=== PATIENT | female | born 1970 | race Caucasian/White ===

== ENCOUNTER 2020-09-09 02:56 | Outpatient (CLI) | payer BC, SELFPAY ==
[2020-09-10 15:53] LABS: COVID-19 RT-PCR UVMMC Result Negative (Negative)
== END 2020-09-09 03:16 ==
PROVIDERS: Visit Provider Nurse Practitioner Family
DX: Z03.818 Encounter for observation for suspected exposure to other biological agents ruled out (principal)
CPT/HCPCS: U0003